=== PATIENT | male | born 1995 | race African-American/Black ===

== ENCOUNTER 2025-06-10 00:21 | Emergency (ER) | payer OTHER ==
[~2025-06-10] VITALS: Ht 177.8 cm; Wt 85.4 kg
[2025-06-10 00:40] VITALS: TEMP 36.8; O2SAT 99
[2025-06-10 01:18] LABS: BASOPHILS % 1.1 % (0.0-2.0); EOSINOPHILS % 2.5 % (0.0-5.0); HEMATOCRIT. 44.0 % (42.0-52.0); HEMOGLOBIN. 14.7 g/dL (14.0-18.0); LYMPHOCYTES % 37.4 % (20.0-50.0); MEAN PLATELET VOLUME 9.5 fl (7.4-10.4); MONOCYTES % 7.0 % (2.0-8.0); NEUTROPHILS % 52.0 % (40.0-76.0); PLATELET 159 x1000/uL (130-400); RED BLOOD CELL COUNT 4.84 mill/uL (4.7-6.1); RED CELL DISTRIBUTION WIDTH 13.5 % (11.6-14.6)
[2025-06-10] MEDS: HYDROXYZINE 25MG TABLET PO NR (01:30)
[2025-06-10] MEDS: HYDROXYZINE 25MG TABLET PO ONE (01:30)
[2025-06-10 01:35] LABS: CREATININE 1.1 mg/dL (0.6-1.3); UREA NITROGEN BLOOD 10 mg/dL (9-23)
[2025-06-10 01:36] LABS: TROPONIN I HIGH SENSITIVITY < 4 ng/L (3.0-53)
[2025-06-10 01:59] VITALS: BP 131/88; PULSE 82; RESP 16; O2SAT 100
== END 2025-06-10 02:00 | disposition home or self-care (01) ==
LOC: ER 00:21
DX: R06.02 Shortness of breath (principal); M79.604 Pain in right leg
CPT/HCPCS: 36415; 71045; 80048; 84484; 85025; 85379; 93005; 93971; 99285